=== PATIENT | male | born 1995 | race Caucasian/White ===

== ENCOUNTER 2018-01-26 11:45 | Emergency (ER) | payer OTHER ==
--- NOTE | 2018-01-26 13:26 | ED Physician Documentation ---
PD HPI UPPER EXT INJURY - Stated complaint Stated Complaint: LEFT HAND INJ - Chief complaint Chief Complaint: Ext Problem - History obtained from History obtained from: Patient - History of Present Illness Location: Left, Hand Type of injury: Blunt / blow Where injury occurred: Work Timing - onset: How many days ago (2) Timing - duration: Days Timing - details: Abrupt onset, Still present Improved by: Rest, Immobilization Worsened by: Moving, Palpating Associated symptoms: Swelling. 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 He has a small abrasion over the proximal fourth metacarpal and this is where his pain is. 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 Review of Systems Constitutional: denies: Fever Respiratory: denies: Cough GI: denies: Vomiting Skin: denies: Rash Musculoskeletal: reports: Extremity pain, Extremity swelling. denies: Neck pain , Back pain Neurologic: denies: Generalized weakness, Focal weakness, Numbness PD PAST MEDICAL HISTORY - Past Medical History Past Medical History: No - Past Surgical History Past Surgical History: Yes - Present Medications Home Medications: Ambulatory Orders Medication Instructions Recorded Confirmed No Known Home Medications [No 01/26/18 01/26/18 Known Home Medications] - Allergies Allergies/Adverse Reactions: Allergies Allergy/AdvReac Type Severity Reaction Status Date / Time No Known Drug Allergies Allergy Verified 01/26/18 12:20 - Social History Does the pt smoke?: No Smoking Status: Never smoker Does the pt drink ETOH?: No Does the pt have substance abuse?: No - Immunizations Immunizations are current?: Yes PD ED PE NORMAL - Vitals Vital signs reviewed: Yes (hypertensive ) - General General: Alert and oriented X 3, No acute distress, Well developed/nourished - HEENT HEENT: Atraumatic, PERRL - Respiratory Respiratory: No respiratory distress - Derm Derm: Normal color, Warm and dry, No rash - Extremities Extremities: No deformity, Other (There is some swelling and point tenderness over the proximal 4th MC with a small abrasion. There is no drainage and no erythema. Distal n/v is intact. ) - Neuro Neuro: No motor deficit, No sensory deficit Eye Opening: Spontaneous Motor: Obeys Commands Verbal: Oriented GCS Score: 15 - Psych Psych: Normal mood, Normal affect Results - Vitals Vitals: Vital Signs - 24 hr 01/26/18 01/26/18 12:15 14:17 Temperature 36.4 C L 36.6 C Heart Rate 80 72 Respiratory 16 16 Rate Blood Pressure 135/80 H 125/74 O2 Saturation 99 98 Oxygen O2 Source Room air - Rads (name of study) hand Radiology: Prelim report reviewed (Impression: Normal hand radiography.), EMP read indepedently, See rad report PD MEDICAL DECISION MAKING - ED course Complexity details: reviewed results, re-evaluated patient, considered differential, d/w patient ED course: 22 y/o male with a hand contusion does not have evidence of fracture on plain film. - Sepsis Event Vital Signs: Vital Signs - 24 hr 01/26/18 01/26/18 12:15 14:17 Temperature 36.4 C L 36.6 C Heart Rate 80 72 Respiratory 16 16 Rate Blood Pressure 135/80 H 125/74 O2 Saturation 99 98 Oxygen O2 Source Room air Departure - Departure Disposition: 01 Home, Self Care Clinical Impression: Contusion of left hand Qualifiers: Encounter type: initial encounter Qualified Code(s): S60.222A - Contusion of left hand, initial encounter Instructions: ED Contusion Hand Follow-Up: TOMASZ Sawyer [Provider Group] Discharge Date/Time: 01/26/18 14:17
--- NOTE | 2018-01-26 14:11 | XRAY Preliminary Report ---
Exam: XR HAND 3 VIEW LT IMPRESSION: Normal hand radiography. [facility] SITE ID: [id number]
--- NOTE | 2018-01-26 14:15 | XRAY Report ---
EXAM: LEFT HAND RADIOGRAPHY EXAM DATE: 01/26/2018 02:05 PM. CLINICAL HISTORY: Pain over fourth proximal metacarpal after crush injury. COMPARISON: None. TECHNIQUE: 3 views. FINDINGS: Bones: Normal. No fractures or bone lesions. Joints: Normal. No subluxations. Soft Tissues: Normal. No soft tissue swelling. IMPRESSION: Normal hand radiography. [facility] Referring Provider Line: [phone] SITE ID: [id number]
[2018-01-26 14:18] VITALS: BP 125/74
== END 2018-01-26 14:17 | disposition home or self-care (01) ==
LOC: ED 11:45
DX: S60.222A Contusion of left hand, initial encounter (principal); S60.415A Abrasion of left ring finger, initial encounter; W23.0XXA Caught, crushed, jammed, or pinched between moving objects, initial encounter; Y99.1 Military activity
CPT/HCPCS: 99282; 99283